=== PATIENT | male | born 1945 | race Caucasian/White ===

== ENCOUNTER 2016-08-02 10:02 | Outpatient (CLI) | payer OTHER | END 2016-08-02 10:03 | LOC: LAB 10:02 | PROVIDERS: ATTEND Family Medicine | DX: E11.9 Type 2 diabetes mellitus without complications (principal) | CPT/HCPCS: 36415; 80061; 83036 ==

== ENCOUNTER 2016-11-09 10:26 | Outpatient (CLI) | payer OTHER | END 2016-11-09 10:27 | LOC: LAB 10:26 | PROVIDERS: ATTEND Family Medicine | DX: E11.9 Type 2 diabetes mellitus without complications (principal) | CPT/HCPCS: 36415; 83036 ==

== ENCOUNTER 2017-02-13 14:04 | Outpatient (CLI) | payer OTHER ==
[2017-02-13 14:49] LABS: eGFR (African) > 60; eGFR (Non-African) > 60
== END 2017-02-13 14:05 ==
LOC: LAB 14:04
PROVIDERS: ATTEND Family Medicine
DX: E78.5 Hyperlipidemia, unspecified (principal); E11.9 Type 2 diabetes mellitus without complications
CPT/HCPCS: 36415; 80053; 80061; 83036

== ENCOUNTER 2017-08-28 11:03 | Outpatient (CLI) | payer OTHER | END 2017-08-28 11:04 | LOC: LAB 11:03 | PROVIDERS: ATTEND Family Medicine | DX: I10 Essential (primary) hypertension (principal); E11.9 Type 2 diabetes mellitus without complications | CPT/HCPCS: 36415; 83036 ==

== ENCOUNTER 2017-11-27 11:42 | Outpatient (CLI) | payer OTHER | END 2017-11-27 13:54 | LOC: LAB 11:42 | PROVIDERS: ATTEND Family Medicine | DX: E11.9 Type 2 diabetes mellitus without complications (principal) | CPT/HCPCS: 36415; 83036 ==

== ENCOUNTER 2018-02-26 12:58 | Outpatient (CLI) | payer OTHER ==
[2018-02-26 13:41] LABS: eGFR (Non-African) > 60
[2018-02-26 13:42] LABS: BASOPHILS % 0.6 (0.0-1.5); EOSINOPHILS % 1.4 % (0.0-6.8); MEAN CORPUSCULAR HEMOGLOBIN 27.7 pg (28.0-34.0); MONOCYTES % 9.9 % (0.0-11.0)
== END 2018-02-26 13:00 ==
LOC: LAB 12:58
PROVIDERS: ATTEND Family Medicine
DX: E11.9 Type 2 diabetes mellitus without complications (principal); I10 Essential (primary) hypertension
CPT/HCPCS: 36415; 80053; 83036; 85025

== ENCOUNTER 2018-08-27 10:23 | Outpatient (CLI) | payer OTHER | END 2018-08-27 10:25 | LOC: LAB 10:23 | PROVIDERS: ATTEND Family Medicine | DX: E11.9 Type 2 diabetes mellitus without complications (principal); E78.5 Hyperlipidemia, unspecified | CPT/HCPCS: 36415; 80061; 83036 ==

== ENCOUNTER 2019-03-04 10:32 | Outpatient (CLI) | payer OTHER | END 2019-03-04 10:37 | LOC: LAB 10:32 | PROVIDERS: ATTEND Family Medicine | DX: E11.9 Type 2 diabetes mellitus without complications (principal) | CPT/HCPCS: 36415; 83036 ==